=== PATIENT | female | born 2005 | race Caucasian/White ===

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

== ENCOUNTER 2025-05-10 11:28 | Outpatient (REF) | payer MEDICAID, SELFPAY ==
--- OUTSIDE RECORDS SUMMARY | 2025-05-10 13:07 | XMS_ITS | Encounter Summary ---
Author Organization [employer] Address [address] [place] [address] Care Team Providers Care Core Shaper Sides Name Role Phone Ana M Fajardo JUAN PABLO Primary Care Provider [phone] Soumya Spence NP Primary Care Provider [phone] Encounter Details Date Type Department Care Team (Late st Contact Info) Description 04/12/2024 Orders Only [facility] [address], [place] [phone] Sil Wagner NP [address] [place], [place] [phone] Encounter for surveillance of contraceptives, unspecified contraceptive (Primary Dx) Social History Tobacco Use Types Packs/Day Years Used Date Smoking Tobacco: Never Smokeless Tobacco: Never Alcohol Use Standard Drinks/Week Comments Never 0 (1 standard drink = 0.6 oz pur e alcohol) Depression Answer Date Recorded Patient Health Questionnaire-9 Score 4 12/26/2023 Patient Health Questionnaire-9 Score 4 12/26/2023 Last PHQ-9: Questionnaire Data Not on file 0 12/26/2023 Housing Stability Answer Date Recorded What is your housing situation today? I have sincere mcqueen 12/26/[address] you li ve. Do you have problems with any of the following? None of the above 12/26/2023 Food Insecurity Answer Date Recorded Within the past 12 months, y ou worried that your food would run out before you got money to buy more: Never True 12/26/2023 Within the past 12 months,th e food you bought just didn't last and you didn't have enough money to get more: Never True 12/2023 Transportation Answer Date Recorded In the past 12 months, has l ack of transportation kept you from medical appts, meetings, work or from getting things needed for daily living? No 12/26/2023 Utilities Answer Date Recorded In the past 12 months, has t he electric, gas, oil or water company threatened to shut off services in your home? No 12/26/2023 Depression Answer Date Recorded Patient Health Questionnaire-2 Score 1 12/26/2023 Comments No Sex and Gender Information Value Date Recorded Sex Assigned at Female 09/23/2022 10:20 AM EDT Legal Sex Female 10:20 AM EDT Gender Identity Female 09/23/2022 10:20 AM EDT Sexual Orientation Straight 07/10/2023 11 :37 AM EDT documented as of this encounter Plan of Treatment Not on file documented as of this encounter Visit Diagnoses Diagnosis Encounter for surveillance of contraceptives, unspecified contraceptive- Primary documented in this encounter Additional Health Concerns Assessment Noted Time PHQ-9 Depression Total Score: 4 12/26/19 24 1:42 PM EST documented as of this encounter Care Teams Core Shaper Sides Relationship Specialty Start Date End Date Ana M Fajardo FNP [address] [place] [address] PCP - General Family Medicine 07/23/23 07/26/24 Soumya Spence NP [address] [place] [address] PCP - General Family Medicine 07/27/24 documented as of this encounter
[2025-05-10 13:27] LABS: MANUAL DIFF FLAG NO
[2025-05-10 13:35] LABS: Basophils Percent Auto 0.5 % (0-2); Eosinophils Absolute Auto 0.4 X10*3/uL (0.0-0.4); Hematocrit 37.6 % (37.0-47.0); Hemoglobin 12.4 g/dl (12.0-16.0); Imm Gran Abs Auto 0.01 X10*3/uL (0.00-0.03); Imm Gran Pct Auto 0.2 % (0.0-0.4); Lymphocytes Absolute Auto 0.9 X10*3/uL (1.2-4.9); Lymphocytes Percent Auto 14.3 % (20-40); Mean Corpuscular Hemoglobin 28.4 pg (27.0-33.0); Mean Corpuscular Volume 86.2 fL (80.0-98.0); Mean Platelet Volume 9.7 fL (9.4-12.3); Monocytes Absolute Auto 0.4 X10*3/uL (0.1-1.2); Monocytes Percent Auto 6.1 % (2-11); Neutrophils Absolute Auto 4.8 x10*3/uL (2.0-8.3); Neutrophils Percent Auto 72.9 % (45-73); Platelet Count 243 X10*3/uL (160-400); Red Blood Count 4.36 X10*6/uL (4.20-5.50); Red Cell Distribution Width 13.5 % (11.0-16.0); White Blood Count 6.5 X10*3/uL (4.8-10.8)
[2025-05-10 13:51] LABS: Anion Gap 9 (12-20); Blood Urea Nitrogen 21 mg/dL (9-16); Carbon Dioxide 26 mmol/L (22-29); Chloride 110 mmol/L (96-108); Estimated Glomerular Filt Rate > 60; Glucose Random 92 mg/dL (60-115); Potassium 3.7 mmol/L (3.3-5.1); Sodium 141 mmol/L (135-145)
[2025-05-10 14:05] LABS: TSH reflex Free T4 1.12 uIU/mL (0.32-4.0); Vitamin D 25-OH Total 18.9 ng/mL (>30)
== END 2025-05-10 11:29 | disposition home or self-care (01) ==
LOC: HO.HHCL 11:28
PROVIDERS: Nurse Practitioner; PCP Pediatrics; Visit Provider Pediatrics
DX: R30.9 Painful micturition, unspecified (principal); R35.0 Frequency of micturition; R53.83 Other fatigue
CPT/HCPCS: 36415; 80048; 82306; 84443; 85025; 87086